=== PATIENT | female | born 1980 | race Caucasian/White ===

== ENCOUNTER 2020-02-15 17:06 | Emergency (ER) | payer BC ==
[2020-02-15 17:21] VITALS: BMI 25.4
--- NOTE | 2020-02-15 17:22 | PDOC ---
Rapid Medical Evaluation Chief Complaint: Pain Time Seen by Provider: 02/15/20 17:17 Medical Evaluation: Allergies Allergy/AdvReac Type Severity Reaction Status Date / Time No Known Allergies Allergy Verified 02/15/20 17:20 02/15/20 17:20 CC: rt suprapubic pain, LMP 01/13/20, no vag bleeding, went to urgent care clinic and saw no iup, so sent here for follow up and r/o ectopic Exam: vss, rt suprapubic tenderness Plan: labs, urine, u/s Discharge Disposition - Diagnosis Abdominal pain during - Referrals - Patient Instructions - Post Discharge Activity
--- NOTE | 2020-02-15 17:51 | PDOC ---
*Physical Exam - Vital Signs Last Vital Signs Temp Pulse Resp BP Pulse Ox 97.8 F 70 16 98/53 L 97 02/15/20 17:18 02/15/20 17:18 02/15/20 17:18 02/15/20 17:18 02/15/20 17:18 - Physical Exam 02/15/20 17:51 The patient was examined by [CHUCKY Pittman] under my direct supervision. I personally evaluated the patient. I concur with the above findings and the plan of care. ED Treatment Course - LABORATORY CBC & Chemistry Diagram: 02/15/20 17:48 02/15/20 17:48 Discharge - Discharge Information Problems reviewed: Yes Clinical Impression/Diagnosis: Vagina, candidiasis Abdominal pain during Qualifiers: Trimester: first trimester Qualified Code(s): O26.891 - Other specified related conditions, first trimester Condition: Stable Disposition: HOME - Additional Discharge Information Prescriptions: Terconazole 80 mg VG HS 5 Days #5 supp.vag - Follow up/Referral Referrals: Migel Rios [Primary Care Provider] - - Patient Discharge Instructions Patient Printed Discharge Instructions: Common Discomforts and Bodily Changes During Additional Instructions: Your blood work was normal and your hormone level is 81 which is the reason why no was seen on ultrasound as it is very early. You need to follow-up in 2 days for repeat beta-hCG to check hormone level. Ultrasound done today was normal and shows no ectopic . Is very important for you to follow-up in 2 days for repeat hormone level. You were prescribed medication today for yeast infection which was sent to your pharmacy - Post Discharge Activity
--- NOTE | 2020-02-15 18:00 | PDOC ---
History of Present Illness - General Chief Complaint: Pain Stated Complaint: PELVIC PAIN Time Seen by Provider: 02/15/20 17:17 History Source: Patient Exam Limitations: Clinical Condition - History of Present Illness Initial Comments: 02/15/20 17:57 Patient LMP January 10 with recent twin delivery 3 months ago presented with complaint of right pelvic pain for 5 days which she was seen in [facility] urgent care today with positive tests and no IUP on official ultrasound. Patient denies vaginal bleeding, fever, chills, nausea, vomiting. Patient with low BP on presentation and report her BP always runs low. Denies any other symptoms Is this a multiple visit Asthma Patient?: No Timing/Duration: other (5 days) Past History - Medical History Allergies/Adverse Reactions: Allergies Allergy/AdvReac Type Severity Reaction Status Date / Time No Known Allergies Allergy Verified 02/15/20 17:20 Home Medications: Ambulatory Orders Terconazole 80 mg VG HS 5 Days #5 supp.vag 02/15/20 - Psycho-Social/Smoking History Smoking History: Never smoked Information on smoking cessation initiated: No - Substance Abuse Hx (Audit-C & DAST Scrn) How often the patient has a drink containing alcohol: Never Score: In Men: 4 or > Positive; In Women: 3 or > Positive: 0 Screen Result (Pos requires Nsg. Audit-10AR): Negative Review of Systems - Review of Systems Able to Perform ROS?: Yes Is the patient limited Telugu proficient: No Constitutional: No: Chills, Fever, Malaise HEENTM: No: Symptoms Reported, See HPI, Eye Pain, Blurred Vision, Tearing, Recent change in vision, Double Vision, Cataracts, Ear Pain, Ocular Prothesis, Ear Discharge, Nose Pain, Nose Congestion, Tinnitus, Nose Bleeding, Hearing Loss, Throat Pain, Throat Swelling, Mouth Pain, Dental Problems, Difficulty Swallowing, Mouth Swelling, Other Respiratory: No: Symptoms reported, See HPI, Cough, Orthopnea, Shortness of Breath, SOB with Exertion, SOB at Rest, Stridor, Wheezing, Productive cough, Hemoptysis, Other Cardiac (ROS): No: Symptoms Reported ABD/GI: No: Symptoms Reported, See HPI, Abd. Pain w/ defecation, Constipated, Diarrhea, Difficulty Swallowing, Nausea, Poor Appetite, Vomiting, Indigestion, Abdominal cramping : Yes: Symptoms Reported, See HPI, Pain (Right pelvic pain), Other (Right pelvic pain). No: Burning, Dysuria, Frequency, Flank Pain, Incontinence, Urgency All Other Systems: Reviewed and Negative *Physical Exam - Vital Signs Last Vital Signs Temp Pulse Resp BP Pulse Ox 97.8 F 70 16 98/53 L 97 02/15/20 17:18 02/15/20 17:18 02/15/20 17:18 02/15/20 17:18 02/15/20 17:18 - Physical Exam General Appearance: Yes: Nourished, Appropriately Dressed. No: Apparent Distress HEENT: positive: Normal ENT Inspection Neck: positive: Supple Respiratory/Chest: negative: Respiratory Distress, Accessory Muscle Use Female Pelvic Exam: positive: normal external exam, cervical os closed, normal adnexa, discharge (small amount of patchy thick cheese-like d/c in vaginal vault), other (TTP to right pelvic area). negative: CMT, lesions, vaginal bleeding Gastrointestinal/Abdominal: positive: Normal Bowel Sounds, Tender (TTP to right pelvic), Flat, Soft. negative: Organomegaly, Distended, Guarding, Rebound, Hernia, Hepatomegaly Musculoskeletal: positive: Normal Inspection. negative: CVA Tenderness Extremity: positive: Normal Capillary Refill, Normal Inspection, Normal Range of Motion Integumentary: positive: Normal Color Neurologic: positive: Fully Oriented, Alert, Normal Mood/Affect, Normal Response ED Treatment Course - LABORATORY CBC & Chemistry Diagram: 02/15/20 17:48 02/15/20 17:48 Medical Decision Making - Medical Decision Making 02/15/20 17:58 Patient LMP January 10 with recent twin delivery 3 months ago presented with complaint of right pelvic pain for 5 days which she was seen in [facility] urgent care today with positive tests and no IUP on official ultrasound. Patient denies vaginal bleeding, fever, chills, nausea, vomiting. Patient with low BP on presentation and report her BP always runs low. Denies any other symptoms. Patient doing well her lab report done from was made urgent care [facility] which showed normal CBC and chemistry lab but beta-hCG was still pending. Official ultrasound report brought by patient from urgent care shows no IUP with multiple uterine fibroids with no evidence of ectopic. 02/15/20 18:31 Exam significant for small patchy white cheeselike discharge in vaginal vault with no blood in vault. Cervical os closed. No cervical motion tenderness. Moderate tenderness to right pelvic region. No abdominal tenderness. No guarding or rebound. Symptoms likely ectopic versus pelvic pain from ovulatory from versus pain from uterine fibroids. CBC, beta hCG lab ordered. Transvaginal ultrasound ordered to rule out ectopic. Will give Tylenol IV for pelvic pain pending lab results. UA and urine culture lab results sent 02/15/20 19:29 CBC unremarkable. Beta-hCG is 81. Transvaginal ultrasound shows no ectopic . Patient reported preventing pain with Tylenol. Patient very early to see on ultrasound and repeat beta-hCG in 48 hours to trend hormone. Discussed with patient the importance of follow-up for re peat beta-hCG in 48 hours. Patient stable for discharge on terconazole vaginal suppository for yeast infection. Discharge - Discharge Information Problems reviewed: Yes Clinical Impression/Diagnosis: Vagina, candidiasis Abdominal pain during Qualifiers: Trimester: first trimester Qualified Code(s): O26.891 - Other specified related conditions, first trimester Condition: Stable Disposition: HOME - Admission No - Additional Discharge Information Prescriptions: Terconazole 80 mg VG HS 5 Days #5 supp.vag - Follow up/Referral Referrals: Migel Rios [Primary Care Provider] - - Patient Discharge Instructions Patient Printed Discharge Instructions: Common Discomforts and Bodily Changes During Additional Instructions: Your blood work was normal and your hormone level is 81 which is the reason why no was seen on ultrasound as it is very early. You need to follow-up in 2 days for repeat beta-hCG to check hormone level. Ultrasound done today was normal and shows no ectopic . Is very important for you to follow-up in 2 days for repeat hormone level. You were prescribed medication today for yeast infection which was sent to your pharmacy - Post Discharge Activity
[2020-02-15 18:11] LABS: BASO % 0.5 % (0-2.0); EOS % 1.1 % (0-4.5); HEMATOCRIT 37.4 % (32.4-45.2); HEMOGLOBIN 12.3 GM/dL (10.7-15.3); LYMPH % 30.1 % (8-40); MCH 29.5 pg (25.7-33.7); MEAN CELL VOLUME 89.5 fl (80-96); MEAN PLT VOLUME 8.8 fl (7.5-11.1); MONO % 7.9 % (3.8-10.2); NEUT % 60.4 % (42.8-82.8); PLATELET COUNT 262 K/MM3 (134-434); RBC 4.18 M/mm3 (3.60-5.2); RDW 13.5 % (11.6-15.6); WHITE BLOOD COUNT 6.2 K/mm3 (4.0-10.0)
[2020-02-15] MEDS ORDERED: ACETAMINOPHEN 1000 MG/100 ML VIAL (NON FORMULARY) IVPB ONE (18:36)
[2020-02-15] MEDS ORDERED: ACETAMINOPHEN INJECTION 100 ML IVPB ONE (18:38)
[2020-02-15 19:01] LABS: ALBUMIN 4.2 g/dl (3.4-5.0); BILIRUBIN,TOTAL 0.5 mg/dL (0.2-1); BLOOD UREA NITROGEN 6.4 mg/dL (7-18); CALCIUM 8.8 mg/dL (8.5-10.1); CREATININE 0.6 mg/dL (0.55-1.3); POTASSIUM 3.9 mmol/L (3.5-5.1); TOT PROT 7.9 g/dl (6.4-8.2)
[2020-02-15 19:20] LABS: URINE APPEARANCE CLEAR; URINE BILIRUBIN NEGATIVE (NEGATIVE); URINE COLOR YELLOW; URINE GLUCOSE (UA) NEGATIVE (NEGATIVE); URINE KETONE NEGATIVE (NEGATIVE)
[2020-02-15 19:21] LABS: PH,URINE >= 9.0 (5.0-8.0); URINE LEUK ESTERASE 1+ (NEGATIVE); URINE NITRITE NEGATIVE (NEGATIVE); URINE PROTEIN TRACE (NEGATIVE)
[2020-02-15 19:24] VITALS: BP 102/65; PULSE 62; TEMP 99
[2020-02-15 19:25] LABS: EPI CELLS >36 /uL (0-25.1); HYALINE CASTS 3 /uL (0-3.1); URINE BACTERIA 138 /uL (0-1359); URINE RBC 4 /uL (0-23.9); URINE WBC 9 /uL (0-25.8)
== END 2020-02-15 19:46 | disposition home or self-care (01) ==
LOC: JER 17:06
PROC: 3E033GC Introduction of Other Therapeutic Substance into Peripheral Vein, Percutaneous Approach (ICD-10-PCS; principal; 2020-02-15)
DX: B37.3 Candidiasis of vulva and vagina (principal)
CPT/HCPCS: 36415; 76817-TC; 80053; 81003; 84702; 85025; 86850; 86900; 86901; 87086; 99284-25; J0131